=== PATIENT | male | born 1990 | race American Indian/Alaskan Native ===

== ENCOUNTER 2017-03-30 19:28 | Emergency (ER) | payer BC, MEDICAID ==
--- NOTE | 2017-03-30 20:22 | C.PDOC ---
History Of Present Illness Patient presents to the ED via ambulance for evaluation after having a witnessed seizure around 1 hour prior to arrival. Patient was sitting in a car with a friend, who noticed patient was seizing. Patient reports he has been noncompliant with his medication. He denies does not appear to be a postictal state and denies urinary/bowel incontinence or any injuries at this time. Chief Complaint (Nursing): Seizure History Per: Patient, EMS History/Exam Limitations: no limitations Recent Seizure Activity Began: Hours Ago: (1) Number Of Seizures: One Length Of Seizures (Duration): Unknown Quality Of Seizure: Generalized Precipitating Factor(s): Missed Dose Of Anti-seizure Medication Post-ictal Period: No Severity: Mild Pain Scale Rating Of: 2 Recent travel outside of the [place]: No Additional History Per: Patient, EMS Past Medical History Reviewed: Historical Data, Nursing Documentation, Vital Signs Vital Signs: Last Vital Signs Temp 97.4 F L 03/30/17 19:34 Pulse 58 L 03/30/17 22:43 Resp 18 03/30/17 22:43 BP 109/65 03/30/17 22:43 Pulse Ox 100 03/30/17 22:43 - Medical History PMH: Seizures Surgical History: No Surg Hx Family History: States: Unknown Family Hx - Social History Hx Alcohol Use: No Hx Substance Use: No Review Of Systems Constitutional: Negative for: Fever, Chills Cardiovascular: Negative for: Chest Pain, Palpitations Respiratory: Negative for: Cough, Shortness of Breath Gastrointestinal: Negative for: Nausea, Vomiting, Abdominal Pain Genitourinary: Negative for: Incontinence Skin: Negative for: Rash, Lesions, Jaundice, Bruising Neurological: Positive for: Seizures. Negative for: Weakness, Numbness, Confusion, Headache, Dizziness Psych: Negative for: Withdrawal Physical Exam - Physical Exam Appears: Non-toxic, No Acute Distress Skin: Warm, Dry Head: Normacephalic Eye(s): bilateral: Normal Inspection Oral Mucosa: Moist Tongue: No Bite, No Bleeding Neck: Supple Chest: Symmetrical, No Deformity, No Tenderness Cardiovascular: Rhythm Regular, No Murmur Respiratory: No Rales, No Rhonchi, No Wheezing Gastrointestinal/Abdominal: Soft, No Tenderness, No Guarding, No Rebound Extremity: Normal ROM, Capillary Refill (less than 2 seconds ) Neurological/Psych: Oriented x3 Gait: Steady ED Course And Treatment O2 Sat by Pulse Oximetry: 97 (on RA) Pulse Ox Interpretation: Normal Progress Note: labs ordered and reviewed. Patient received Keppra IVP and IV Fluids. Reevaluation Time: 23:08 Reassessment Condition: Improved Disposition Counseled Patient/Family Regarding: Studies Performed, Diagnosis, Need For Followup - Disposition Referrals: Odell Abdullahi MD [Staff Provider] - Disposition: HOME/ ROUTINE Disposition Time: 20:22 Condition: FAIR Additional Instructions: Please take your seizure medication Instructions: Epilepsy (DC) Forms: [employer] (Swedish) - Clinical Impression Clinical Impression: Seizure - Scribe Statement The provider has reviewed the documentation as recorded by the Scribe (Tiffany Hickman) Provider Attestation: All medical record entries made by the Scribe were at my direction and personally dictated by me. I have reviewed the chart and agree that the record accurately reflects my personal performance of the history, physical exam, medical decision making, and the department course for this patient. I have also personally directed, reviewed, and agree with the discharge instructions and disposition.
[2017-03-30] MEDS ORDERED: levETIRAcetam 500 MG in Sodium Chloride 0.9% 100 ML IVPB STA (20:30)
[2017-03-30] MEDS ORDERED: Sodium Chloride 0.9% 1,000 ML IV ONE (20:30)
[2017-03-30 23:02] LABS: RBC URINE 1 /hpf (0-3); URINE BACTERIA OCC (<OCC); URINE BILIRUBIN NEGATIVE (NEGATIVE); URINE BLOOD NEGATIVE (NEGATIVE); URINE COLOR Yellow (YELLOW); URINE GLUCOSE (UA) NORMAL (Normal); URINE KETONE NEGATIVE (NEGATIVE); URINE LEUKOCYTE ESTERASE NEG Leu/uL (Negative); URINE PROTEIN NEGATIVE (NEGATIVE); URINE UROBILINOGEN NORMAL mg/dL (0.2-1.0); WBC URINE < 1 /hpf (0-5)
[2017-03-30 23:33] VITALS: BP 109/54; PULSE 66; RESP 20; TEMP 98.3; O2SAT 99
== END 2017-03-30 23:30 | disposition home or self-care (01) ==
LOC: C.ER 19:28
DX: R56.9 Unspecified convulsions (principal)
CPT/HCPCS: 36415; 81001; 82948; 96374; 99285; J1953; J7040

== ENCOUNTER 2018-01-07 12:57 | Emergency (ER) | payer BC, MEDICAID ==
[2018-01-07 12:57] VITALS: BMI 27.9
[2018-01-07 13:08] VITALS: BP 100/66; PULSE 92; O2SAT 98
--- NOTE | 2018-01-07 13:47 | C.PDOC ---
History Of Present Illness 27 year old male with PMH seizures presents to the ED complaining of throat pain and fever for the last 2 days. (+) nasal congestion. Denies cough, ear pain , vomiting, diarrhea, headache, dizziness, difficulty swallowing or shortness of breath. He states he took tylenol last night with mild relief. He reports his has the same symptoms. Time Seen by Provider: 01/07/18 13:22 Chief Complaint (Nursing): Flu-like Symptoms History Per: Patient History/Exam Limitations: no limitations Onset/Duration Of Symptoms: Days Current Symptoms Are (Timing): Still Present Location Of Pain: Throat, Headache Sick Contacts (Context): Family Member(s) ( ) Associated Symptoms: Fever, Sore Throat, Nasal Congestion. denies: Cough Past Medical History Reviewed: Historical Data, Nursing Documentation, Vital Signs Vital Signs: Last Vital Signs Temp 100.8 F H 01/07/18 14:36 Pulse 92 H 01/07/18 13:05 Resp 16 01/07/18 14:36 BP 100/66 01/07/18 13:05 Pulse Ox 98 01/07/18 14:36 - Medical History PMH: Seizures Surgical History: No Surg Hx Family History: States: No Known Family Hx - Social History Hx Alcohol Use: No Hx Substance Use: No - Immunization History Hx Tetanus Toxoid Vaccination: No Hx Influenza Vaccination: No Hx Pneumococcal Vaccination: No Review Of Systems Except As Marked, All Systems Reviewed And Found Negative. Constitutional: Positive for: Fever ENT: Positive for: Throat Pain. Negative for: Ear Pain Respiratory: Negative for: Cough, Shortness of Breath Gastrointestinal: Negative for: Vomiting, Diarrhea Neurological: Positive for: Headache Physical Exam - Physical Exam Appears: Non-toxic, No Acute Distress Skin: Normal Color, Warm Head: Atraumatic, Normacephalic Eye(s): bilateral: Normal Inspection, PERRL, EOMI Ear(s): Bilateral: Normal Nose: Normal Oral Mucosa: Moist Throat: Erythema, No Exudate, No Drooling Neck: Normal ROM, Supple Lymphatic: Normal Exam Chest: Symmetrical Cardiovascular: Rhythm Regular Respiratory: Normal Breath Sounds, No Accessory Muscle Use, No Rales, No Rhonchi , No Wheezing Extremity: Normal ROM Neurological/Psych: Oriented x3, Normal Speech Gait: Steady ED Course And Treatment O2 Sat by Pulse Oximetry: 98 (RA) Pulse Ox Interpretation: Normal Progress Note: Patient assessed and examined. Fever improved. Tolerating PO. NO SOB or difficutly swallowing. Patient instructed to follow up with PMD in 1-2 days. Patient given Rx for Zithromax and Motrin. Disposition - Disposition Referrals: Odell Abdullahi MD [Staff Provider] - Disposition: HOME/ ROUTINE Disposition Time: 13:45 Condition: STABLE Additional Instructions: Follow up with your primary medical doctor or clinic in 2-5 days for further evaluation. Take medications as prescribed. Return to the emergency department at any time if symptoms persist or worsen. Prescriptions: Azithromycin [Zithromax] 250 mg PO DAILY #4 tab Ibuprofen [Motrin] 600 mg PO Q6 PRN #20 tab PRN Reason: Pain, Mild (1-3) Instructions: Sore Throat, Adult (DC) Forms: [employer] (Finnish) - Clinical Impression Clinical Impression: Pharyngitis - PA / TECHNOLOGY TEACHER / Resident Statement MD/DO has reviewed & agrees with the documentation as recorded. - Scribe Statement The provider has reviewed the documentation as recorded by the Scribsol Pang All medical record entries made by the Lamine were at my direction and personally dictated by me. I have reviewed the chart and agree that the record accurately reflects my personal performance of the history, physical exam, medical decision making, and the department course for this patient. I have also personally directed, reviewed, and agree with the discharge instructions and disposition.
[2018-01-07 14:37] VITALS: RESP 16; TEMP 100.8
== END 2018-01-07 14:36 | disposition home or self-care (01) ==
LOC: C.ER 12:57
DX: J02.9 Acute pharyngitis, unspecified (principal)